=== PATIENT | female | born 1975 | race Caucasian/White ===

== ENCOUNTER 2019-06-02 15:25 | Inpatient (IN) | payer OTHER ==
[~2019-06-02] VITALS: Ht 154.9 cm; Wt 68.0 kg
[2019-06-02 15:33] VITALS: BP 148/102
[2019-06-02] MEDS ORDERED: LORazepam 1 MG TAB PO ONE (15:40)
--- NOTE | 2019-06-02 15:44 | NUR ---
44 y/o f biba with c/c of fast heart rate, per pt had a drink with natural caffeine today, per pt been vomiting x2 weeks. pt nka. hx htn, dm, pneumonia. rx atenolol, metformin. denies diarrhea. side rail x1. family at bedside. bowel sounds normoactive.
[2019-06-02 16:08] LABS: HEMOGLOBIN 10.3 g/dL (12.0-16.0); MEAN CORPUSCULAR HEMOGLOBIN 25 pg (27-31); MEAN CORPUSCULAR HGB CONC 32 g/dL (33-37)
[2019-06-02 16:09] LABS: HEMATOCRIT 32.5 % (36-48); MEAN CORPUSCULAR VOLUME 78.6 fL (80-94); PLATELET COUNT (AUTO) 412 K/uL (140-450); RED BLOOD CELL COUNT(AUTO) 4.13 MIL/uL (4.20-5.40); RED CELL DISTRIBUTION WIDTH 18.7 % (11.6-13.7); WHITE BLOOD COUNT (AUTO) 15.1 K/uL (4.8-10.8)
[2019-06-02] MEDS ORDERED: METOCLOPRAMIDE 10 MG/2 ML INJ VIAL IVP ONE (16:25)
[2019-06-02] MEDS ORDERED: NACL 0.9% 1,000 ML IV ONE (16:25)
[2019-06-02 16:31] LABS: BASOPHILS % (MANUAL) 0 % (0-2); EOSINOPHILS % (MANUAL) 1 % (0-4); LYMPHOCYTES % (MANUAL) 8 % (20-46); MONOCYTES % (MANUAL) 6 % (5-12)
[2019-06-02 16:40] LABS: ANION GAP 16.4 (8-16); CREATININE 1.2 mg/dL (0.6-1.3); POTASSIUM 3.4 mmol/L (3.5-5.1)
[2019-06-02 16:46] LABS: TOTAL BILIRUBIN 0.5 mg/dL (0.0-1.0)
[2019-06-02] MEDS ORDERED: INSULIN REGULAR, HUMAN 100 UNIT/ML VIAL SUBQ ONE (16:50)
--- NOTE | 2019-06-02 17:04 | NUR ---
QUANTITATIVE SOFTWARE ENGINEER AT BEDSIDE
[2019-06-02 17:05] LABS: BARBITURATE, URINE NEG. ng/ml (NEG <=200); BENZODIAZEPINE, URINE NEG. ng/mL (NEG <=200); CANNABINOID, URINE NEG. ng/mL (NEG <=50); COCAINE, URINE NEG. ng/mL (NEG <=300); OPIATE, URINE NEG. ng/mL (NEG <=2000); PHENCYCLIDINE SCREEN,URINE NEG. ng/mL (NEG <=25)
[2019-06-02 17:06] LABS: APPEARANCE,URINE CLEAR (CLEAR); BILIRUBIN,URINE 1+ (NEGATIVE); BLOOD, URINE NEGATIVE (NEGATIVE); COLOR,URINE YELLOW (YELLOW); LEUKOCYTE ESTERASE ,URINE NEGATIVE (NEGATIVE); NITRITE, URINE NEGATIVE (NEGATIVE); UGLUCOSE TRACE (NEGATIVE)
--- NOTE | 2019-06-02 17:09 | NUR ---
LAB AT BEDSIDE
--- NOTE | 2019-06-02 17:56 | NUR ---
PT RESTING IN BED, SIDE RAIL X1, FAMILY AT BEDSIDE
[2019-06-02] MEDS ORDERED: IBUPROFEN 600 MG TAB PO ONE (18:15)
--- NOTE | 2019-06-02 18:21 | NUR ---
XRAY AT BEDSIDE, TAKEN PT VIA WHEELCHAIR
[2019-06-02] MEDS ORDERED: PIPERACILLIN/TAZOBACTAM 3.375 GM in DEXTROSE 5% 50 ML IV ONE (18:30)
[2019-06-02] MEDS ORDERED: VANCOMYCIN 1,000 MG in DEXTROSE 5% 250 ML IV ONE (18:30)
[2019-06-02] MEDS ORDERED: PIPERACILLIN/TAZOBACTAM 3.375 GM VIAL IV ONE (18:34)
[2019-06-02] MEDS ORDERED: VANCOMYCIN 1,000 MG VIAL ONE (18:34)
[2019-06-02] MEDS ORDERED: LEVOFLOXACIN 750 MG/D5W PREMIX 150 ML IV SCH (18:50)
--- NOTE | 2019-06-02 18:58 | NUR ---
ct contrast consent signed and placed on chart
[2019-06-02] MEDS ORDERED: ALUMINUM HYD/MAG/SIMETHICONE 30 ML UDC PO PRN (19:00)
[2019-06-02] MEDS ORDERED: POTASSIUM CHLORIDE 10 MEQ TABER PO PRN (19:00)
[2019-06-02] MEDS ORDERED: IPRATROPIUM 0.02% 0.5 MG/2.5 ML NEBU INH PRN (19:00)
[2019-06-02] MEDS ORDERED: MORPHINE SULFATE 2 MG/ML SYR IVP PRN (19:00)
[2019-06-02] MEDS ORDERED: BISACODYL 10 MG SUPP RC PRN (19:00)
[2019-06-02] MEDS ORDERED: MAG SULF 2000 MG/WATER PREMIX 50 ML IV PRN (19:00)
[2019-06-02] MEDS ORDERED: diphenhydrAMINE 50 MG/ML VIAL IVP PRN (19:00)
[2019-06-02] MEDS ORDERED: cloNIDine 0.1 MG TAB PO PRN (19:00)
[2019-06-02] MEDS ORDERED: ALBUTEROL 0.083% 2.5 MG/3 ML NEBU INH PRN (19:00)
[2019-06-02] MEDS ORDERED: ACETAMINOPHEN 325 MG TAB PO PRN (19:00)
[2019-06-02] MEDS ORDERED: DOCUSATE SODIUM 250 MG GELCAP PO PRN (19:00)
[2019-06-02] MEDS ORDERED: SODIUM PHOSPHATE 118 ML ENEM RC PRN (19:00)
[2019-06-02] MEDS ORDERED: MAGNESIUM OXIDE 400 MG TAB PO PRN (19:00)
[2019-06-02] MEDS ORDERED: ONDANSETRON 4 MG/2 ML VIAL IVP PRN (19:00)
[2019-06-02] MEDS ORDERED: HYDROcodone/APAP 5/325 MG 1 TAB TAB PO PRN ×2 (19:00)
[2019-06-02] MEDS ORDERED: ZOLPIDEM 5 MG TAB PO PRN (19:00)
[2019-06-02] MEDS ORDERED: guaiFENesin DM 200/20 MG-10 ML 10 ML UDC PO PRN (19:00)
[2019-06-02] MEDS ORDERED: ACETAMINOPHEN 650 MG SUPP RC PRN (19:00)
--- NOTE | 2019-06-02 19:09 | NUR ---
report given to TRUPTI Casper for continuity of care
--- NOTE | 2019-06-02 20:05 | NUR ---
Patient will be admitted to care of TELEMETRY. Admited to . Will go to room 110B. Belongings list completed. Report to TRUPTI DOTY. CHARGE NURSE AND MONITOR AWARE OF PENDING PACKET. RECEIVING ACCOUNT ASSISTANT NOTIFIED AND TRUPTI.
--- NOTE | 2019-06-02 20:05 | NUR ---
RECEIVED FROM ER PER SAYRA AWAKE AND ALERT. NO SOB AT THIS TIME. ROOM AIR. CALL LIGHT WITH IN REACH. DX. OF PNA/PLEURAL EFFUSION. ROM X 4. CLEAR SPEECH. NO SOB AT THIS TIME. SKIN INTACT. CARE PLANS FOR THE NIGHT DISCUSSED WITH HER AND CALL LIGHT USE EXPLAINED. ENCOURAGED TO CALL FOR ANY HELP SHE MAY NEED.
[2019-06-02 20:14] VITALS: BP 123/84
[2019-06-02] MEDS ORDERED: ALBUTEROL SULFATE/IPRATROPIU 3 ML SOL IH PRN (20:15)
--- NOTE | 2019-06-02 21:50 | NUR ---
RECEIVED PATIENT ON ROOM AIR, PULSE OX SAT 97%. NO SOB NOTED. PRN HHN NOT INDICATED AT THIS TIME. NO ACUTE RESPIRATORY DISTRESS NOTED. WILL CONTINUE TO MONITOR.
--- NOTE | 2019-06-02 22:07 | NUR ---
CALLED PULMONARY GROUP DIRECTOR OF TRAINING AND IT WAS MD RDZ . WITH NEW ORDER TO D/C CT CHEST WITH/WITHOUT CONTRAST AND CHANGE IT TO CT CHEST WITHOUT CONTRAST. CHARGE NURSE AWARE. K-DUR 40 MEQS P.O. ADMINISTERED RT K LEVEL IS 3.4 . PT. COUGHING INTERMITTENTLY. A/O X 4. NO COMPLAINTS DONE AT THIS TIME.
[2019-06-02] MEDS ORDERED: PNEUMOCOCCAL VACCINE 23 MCG/0.5 ML VIAL IMVAC PRN (22:50)
--- NOTE | 2019-06-02 23:05 | NUR ---
CT CHEST WITHOUT CONTRAST DONE. RESULTS PENDING. WILL FOLLOW UP. PT. SLEEPING AT THIS TIME. CALL LIGHT WITH IN REACH.
[2019-06-03 00:10] VITALS: BP 110/64
[2019-06-03] MEDS ORDERED: INSULIN LISPRO SLIDING SCALE 100 UNITS/ML VIAL SUBQ PRN (00:20)
[2019-06-03] MEDS ORDERED: cefTRIAXone 1,000 MG VIAL ONE (00:36)
--- NOTE | 2019-06-03 01:06 | NUR ---
PROVIDED WITH CRACKERS AND JUICE REQUESTED. STATED SHE IS HUNGRY. ABLE TO VERBALIZE NEEDS WELL IN [place]. A/O X 4.
--- NOTE | 2019-06-03 01:54 | NUR ---
PT. WENT TO RESTROOM AND REQUESTED TO HAVE SOMETHING TO SLEEP. C/O UNABLE TO SLEEP. ADMINISTERED AMBIEN 5 MG P.O. ABLE TO VERBALIZE NEEDS WELL.
--- NOTE | 2019-06-03 03:58 | NUR ---
SLEEPING . NO RESTLESSNESS. CALL LIGHT WITH IN REACH. BED ALARM ON .
[2019-06-03 04:00] VITALS: BP 123/80
[2019-06-03] MEDS: BLOOD GLUCOSE MONITORING 1 DEV DEV FS SCH ×2 (05:11→11:30)
--- NOTE | 2019-06-03 05:51 | NUR ---
SLEEPING WELL AFTER ADMINISTERING REQUESTED SLEEPING MEDICATION /AMBIEN P.O. WOKE UP EASILY WHEN VITAL SIGNS TAKEN. NO COMPLAINTS DONE. BED ALARM ON. CALL LIGHT WITH IN REACH. WILL E JAQUELIN TO AM RN FOR CONTINUITY OF CARE.
[2019-06-03 07:14] LABS: ANION GAP 14.8 (8-16); CARBON DIOXIDE 24.7 mmol/L (21-32); CREATININE 1.1 mg/dL (0.6-1.3); POTASSIUM 3.5 mmol/L (3.5-5.1)
[2019-06-03 07:16] LABS: BASOPHILS # (AUTO) 0.1 K/uL (0.00-0.22); BASOPHILS % (AUTO) 0.5 % (0.0-2.0); EOSINOPHILS # (AUTO) 0.2 K/uL (0-0.4); HEMATOCRIT 29.9 % (36-48); HEMOGLOBIN 9.6 g/dL (12.0-16.0); LYMPHOCYTES # (AUTO) 1.1 K/uL (2.5-16.5); LYMPHOCYTES % (AUTO) 10.2 % (20.5-51.1); MEAN CORPUSCULAR HEMOGLOBIN 25 pg (27-31); MEAN CORPUSCULAR HGB CONC 32 g/dL (33-37); MEAN CORPUSCULAR VOLUME 78.2 fL (80-94); MONOCYTES # (AUTO) 1.3 K/uL (0.8-1.0); MONOCYTES % (AUTO) 12.1 % (1.7-9.3); NEUTROPHILS # (AUTO) 8.2 K/uL (1.8-7.7); NEUTROPHILS % (AUTO) 75.2 % (42.2-75.2); PLATELET COUNT (AUTO) 383 K/uL (140-450); RED BLOOD CELL COUNT(AUTO) 3.82 MIL/uL (4.20-5.40); RED CELL DISTRIBUTION WIDTH 18.9 % (11.6-13.7); WHITE BLOOD COUNT (AUTO) 10.9 K/uL (4.8-10.8)
--- NOTE | 2019-06-03 07:43 | NUR ---
RECEIVED BEDSIDE REPORT FROM GLASS DEPOSITION TENDER NURSE. PATIENT IS AWAKE, ALERT AND ORIENTEDX4. NO SIGNS OF DISTRESS ON RA. SKIN IS INTACT. IV ON R FA 24G SL. CLEAN, DRY AND INTACT. PATIENT IS AMBULATORY. CONTINENT. ABLE TO MAKE NEEDS KNOWN. PATIENT STATES SHE IS UNABLE TO TOLERATE FOOD AND IS CONCERNED SOMETHING IS WRONG W HER GALLBLADDER. I TOLD HER WE WILL COMMUNICATE THAT ISSUE WITH THE DOCTOR. BED IN LOW POSITION. CALL LIGHT WITHIN REACH. WILL CONTINUE TO MONITOR THE PATIENT.
[2019-06-03 08:00] VITALS: BP 116/78
--- NOTE | 2019-06-03 08:31 | NUR ---
PATIENT HAS BEEN SCREENED AND CATEGORIZED MODERATE NUTRITION RISK. PATIENT WILL BE SEEN WITHIN 3-5 DAYS OF ADMISSION. 06/05/18 06/07/[address]
[2019-06-03] MEDS: LORazepam 2 MG/ML VIAL IVP PRN ×2 (08:49→13:12)
[2019-06-03] MEDS ORDERED: ENOXAPARIN 40 MG/0.4 ML SYR SUBQ SCH (09:00)
--- NOTE | 2019-06-03 09:00 | NUR ---
PATIENT SAID SHE FEELS ANXIOUS AFTER EATING. ADMINISTERED PRN ANXIETY MED. PATIENT TOLERATED WELL. NO SIGNS OF DISTRESS. WILL CONTINUE TO MONITOR THE PATIENT
--- NOTE | 2019-06-03 09:51 | NUR ---
Pattern Carrier Note: Basic Screen: Yes High Risk DC Screen [place]: MALLORY LANDIN [place] Relationship: MOTHER Pre-Admission Living Arrangements: Lives with Other Prior ADL Independent Current Home Health Name/Tel: N/A Current DME/02 Name/Tel: N/A Current Hospice Name/Tel: N/A Current Dialysis Name/Tel: N/A Healthcare Decision Maker: Patient Advance Directive No - REFUSED Physician Orders for Life Sustaining Treatment Form No Patient/Family Have Educational Needs No Information Taught: Advance Directive Person Taught: Patient Teaching Tools: Verbal Factors Affecting Learning: None Participation Level: Refused Evaluation: Verbalizes Understanding Needs Additional Education: No Discipline: Case Mgt/Social Svcs Tentative Discharge Plan/Destination: No Needs Identified Will require assistance post discharge: No Referred to Tool And Die Machinist: No Tentative Discharge Plan Summary: Patient is a 44-year-old female admitted for pneumonia and pleural effusion. Patient has PMHX of anxiety, hypertension, and diabetes. Patient was admitted from home. SW met with patient at bedside to verify demographics. Patient stated that she has history of experiencing anxiety. SW asked patient if she was interested in mental health services, but patient refused. Patient reports no history of substance abuse. SW provided education to patient regarding advanced directive but patient refused. Patient's tentative discharge plan is to return home. No further needs identified. Signature: NICOLETTE Lizarraga Date: Jun 03, 2019 Time: 09:50
--- NOTE | 2019-06-03 11:00 | NUR ---
PATIENT RESTING. NO SIGNS OF DISTRESS. WILL CONTINUE TO MONITOR
[2019-06-03 12:00] VITALS: BP 144/98
--- NOTE | 2019-06-03 12:14 | NUR ---
Discharge Planning: [facility] faxed clinical information to [facility] [phone] per physician's orders. [facility]U contacted [phone] to speak to datawarehouse developer. apartment maintenance supervisor was unavailable. MALU spoke with TRUPTI Ratliff to see if patient's information was received. TRUPTI Ratliff transferred SW to admissions. MALU spoke with Philly who stated she has received the fax. Philly stated she would follow up and call MALU back. MALU will follow up as needed. Addendum: 06/03/19 at 1354 by Jorden CARTER [facility] Per Philly, patient is accepted in bed [address] Evans. Report can be given to [phone] ext. [phone]. Physician's orders were faxed to [facility].
--- NOTE | 2019-06-03 13:17 | NUR ---
PATIENT FEELS ANXIOUS. ADMINISTERED PRN ANXIETY MEDS. PATIENT TOLERATED WELL. EDUCATED ON SIDE EFFECTS. WILL CONTINUE TO MONITOR THE PATIENT
--- NOTE | 2019-06-03 14:50 | NUR ---
DC PLANNING CALLED [facility] SPOKE WITH ROBERTO REGARDING THE AUTH FOR [facility] AND TRANSPORTATION PER ROBERTO WILL REVISE AND CALL US BACK Addendum: 06/03/19 at 1520 by Stephanie Sanchez CM DC PLANNING RECEIVED AUTH FROM [facility] ROBERTO FOR AUTH # FOR [facility] [id number] CALL [facility] SPOKE WITH EDYTA STEVE PT CAN GO TO ROOM 2131 # TO GIVE REPORT [phone] TELMA VASQUEZ. ARRANGED TRANSPORT WITH MARTÍNEZ HANLEY [address] JUDGE TIME 4:30 PM GILBERT LYLES.
--- NOTE | 2019-06-03 15:37 | NUR ---
SPOKE TO MALLORY, MOTHER, AT [phone] MADE HER AWARE PATIENT IS GOING TO [facility] AT 1630.
--- NOTE | 2019-06-03 15:45 | NUR ---
CALLED [facility] AT [phone], GAVE REPORT TO TRUPTI MCNAIR. ALL QUESTIONS ANSWER. CALL BACK NUMBER GIVEN
[2019-06-03] MEDS ORDERED: GLUC-805 MC (16:09)
[2019-06-03] MEDS ORDERED: LOV40I SUBQ (16:10)
[2019-06-03] MEDS ORDERED: HUMSLIDE (16:12)
[2019-06-03] MEDS ORDERED: DEXT150S16 IV (16:14)
[2019-06-03] MEDS ORDERED: ATI2I IM/IVP (16:17)
[2019-06-03] MEDS ORDERED: ROC2I IV (16:18)
--- NOTE | 2019-06-03 16:45 | NUR ---
GAVE PATIENT PNA VACCINE. FLU UP TO DATE. EDUCATED ON DISEASE PROCESS, ABN S/SX, EDUCATED ON MEDS, EDUCATED ON FOLLOW UP W PCP WHEN DISCHARGED FROM [facility], PATIENT AWARE SHE IS GOING TO [facility]. IV ON PATIENT STILL FOR CONTINUED IV ANTIBIOTICS R FA 24G SL. TELE MONITOR REMOVED. PATIENT LEFT IN STABLE CONDITION W [facility]. [facility] RECEIVED REPORT AND TAKING PATIENT TO [facility]
== END 2019-06-03 16:45 | disposition short-term general hospital (02) | DRG 143 ==
LOC: MED 15:25 → EDBD 15:25 → MTU 18:56
PROVIDERS: ADMIT Internal Medicine Pulmonary Disease; ATTEND Internal Medicine Pulmonary Disease
PROC: 3E0234Z Introduction of Serum, Toxoid and Vaccine into Muscle, Percutaneous Approach (ICD-10-PCS; principal; 2019-06-02)
DX: J90 Pleural effusion, not elsewhere classified (principal); E11.65 Type 2 diabetes mellitus with hyperglycemia; F41.9 Anxiety disorder, unspecified; D64.9 Anemia, unspecified; E87.6 Hypokalemia; I10 Essential (primary) hypertension; K21.9 Gastro-esophageal reflux disease without esophagitis; Z23 Encounter for immunization
CPT/HCPCS: 36415; 71046; 71250; 80048; 80053; 80305; 81003; 82948; 83605; 83690; 83880; 84484; 85025; 87040; 87081; 87086; 87804; 90732; 93005; 96372; 96374; 99285; J0696; J1650; J1815; J2060; J2543; J2765; J3370; J7030; J7060

== ENCOUNTER 2019-06-22 21:47 | Emergency (ER) | payer OTHER ==
[~2019-06-22] VITALS: Ht 152.4 cm; Wt 70.3 kg
[~2019-06-22 21:47] MED LIST: ATI2I IM/IVP; DEXT150S16 IV; GLUC-805 MC; HUMSLIDE; LOV40I SUBQ; ROC2I IV
[2019-06-22 22:05] VITALS: BP 146/87
--- NOTE | 2019-06-22 22:08 | NUR ---
TO LOBBY A/W BED AMBULATORY
--- NOTE | 2019-06-22 22:55 | NUR ---
PT AMBULATED TO BED 4
--- NOTE | 2019-06-22 23:17 | NUR ---
44 YEAR OLD FEMALE COMPLAINS OF 7/10 ACHING FLANK PAIN. PATIENT STATES THAT SHE HAS A DRAIN COMING FROM LEFT SIDE AND THAT IT NEEDS TO BE DRAINED. GAUZE SURROUNDING DRAIN SITE SATURATED WITH YELLOW FLUID. SITE WITHOUT INFLAMMATION OR DISCHARGE. PATIENT STATES THAT SHE NEEDS TO HAVE THE TUBE DRAINED EVERY 3 DAYS AND THAT THIS WAS HER THIRD DAY. PATIENT AOX4, BREATHING EVEN AND UNLABORED, SKIN WARM AND DRY. BED IN LOWEST POSITION, LOCKED, BED RAIL UPX1. PMH - HTN, DM2, LUNG CANCER ALLERGIES - NKA
--- NOTE | 2019-06-22 23:42 | NUR ---
Ryan issa in [facility] - 06/23/19 at [address] LEE AT BEDSIDE, UNABLE TO REMOVE FLUID. WOUND DRESSING CHANGE PERFORMED WITH DR LEE AT BEDSIDE.
--- NOTE | 2019-06-22 23:42 | NUR ---
DR LEE AT BEDSIDE, UNABLE TO REMOVE FLUID. WOUND DRESSING CHANGE PERFORMED WITH DR LEE AT BEDSIDE. PROCEDURE DONE ASEPTICALLY AND WITH STERILITY.
[2019-06-22 23:45] VITALS: BP 146/87
--- NOTE | 2019-06-22 23:45 | NUR ---
DISCHARGE DONE BY DR LEE. Patient discharged with v/s stable. Written and verbal after care instructions ABOUT WOUND CHECKS given and explained. Patient verbalized understanding. Ambulatory with steady gait. All questions addressed prior to discharge. Advised to follow up with PMD.
== END 2019-06-22 23:48 | disposition home or self-care (01) ==
LOC: MED 21:47
DX: J95.03 Malfunction of tracheostomy stoma (principal); E11.9 Type 2 diabetes mellitus without complications; I10 Essential (primary) hypertension; Z79.899 Other long term (current) drug therapy
CPT/HCPCS: 99281; 99282